=== PATIENT | female | born 1945 | race Caucasian/White ===

== ENCOUNTER 2017-05-23 10:54 | Inpatient (IN) | payer MEDICARE ==
[~2017-05-23] VITALS: Ht 167.6 cm; Wt 89.2 kg
[2017-05-23] MEDS ORDERED: AMIODARONE 900 MG in DEXTROSE 5% 500 ML IV PRN (11:20)
[2017-05-23] MEDS ORDERED: AMIODARONE 50 MG/ML, 3ML IVPush ONE (11:30)
[2017-05-23] MEDS ORDERED: FILTER 0.22 MICRON FOR AMIODARONE IV PRN (11:30)
[2017-05-23] MEDS ORDERED: AMIODARONE 150 MG in DEXTROSE 5% 100 ML IV ONE (11:30)
[2017-05-23] MEDS ORDERED: SODIUM CHLORIDE FLUSH 10ML SYR IVF ONE (11:30)
[2017-05-23 11:45] LABS: HEMATOCRIT 35.1 % (34.6-47.8); HEMOGLOBIN 11.6 g/dL (11.7-16.4); WHITE BLOOD COUNT 9.6 x10^3/uL (3.4-10)
[2017-05-23 11:58] LABS: ASPARTATE AMINO TRANSFERASE 11 U/L (15-37); BLOOD UREA NITROGEN 23 mg/dL (7-18)
[2017-05-23 12:04] LABS: IS PT STATUS REG ER OR PRE ER? YES
[2017-05-23] MEDS: AMIODARONE 900 MG in DEXTROSE 5% 482 ML IV PRN (12:14)
[2017-05-23 13:06] VITALS: BP 107/70
[2017-05-23 13:11] VITALS: BP 107/70
[2017-05-23] MEDS ORDERED: BISACODYL 5 MG EC TABLET PO PRN (13:30)
[2017-05-23] MEDS ORDERED: ACETAMINOPHEN 650 MG/20.3 ML UDC PO PRN (13:30)
[2017-05-23] MEDS ORDERED: INSU100I18 SC (14:10)
[2017-05-23] MEDS ORDERED: SPIR25TA3 PO (14:10)
[2017-05-23] MEDS ORDERED: FURO40TA6 PO (14:10)
[2017-05-23] MEDS ORDERED: LIRA3PEN SC (14:10)
[2017-05-23] MEDS ORDERED: GABA400C PO (14:10)
[2017-05-23] MEDS ORDERED: POTA20TA14 PO (14:10)
[2017-05-23] MEDS ORDERED: CHOL1CRY3 PO (14:10)
[2017-05-23] MEDS ORDERED: INSU100I32 SC (14:10)
[2017-05-23] MEDS ORDERED: APIX5TAB PO (14:10)
[2017-05-23] MEDS ORDERED: BUDE10.2 MT (14:10)
[2017-05-23] MEDS ORDERED: DILT360C PO (14:10)
[2017-05-23] MEDS ORDERED: MULT1CAP19 PO (14:10)
[2017-05-23] MEDS ORDERED: MAGN400T36 PO (14:10)
[2017-05-23] MEDS ORDERED: TIOT18CA INH (14:10)
[2017-05-23] MEDS ORDERED: LISI-420 PO (14:10)
[2017-05-23] MEDS ORDERED: L.AC1CAP6 PO (14:10)
[2017-05-23] MEDS ORDERED: ATOR40TA PO (14:10)
[2017-05-23] MEDS ORDERED: EMPA10TA PO (14:10)
[2017-05-23] MEDS ORDERED: CITA20TA9 PO (14:10)
[2017-05-23] MEDS ORDERED: FILTER 0.22 MICRON IV PRN (14:30)
[2017-05-23 14:33] LABS: IS PT STATUS REG ER OR PRE ER? NO
[2017-05-23] MEDS ORDERED: INSULIN ASPART 100 UNITS/ML, PEN SQ-INSULIN SCH (17:00)
[2017-05-23] MEDS: FUROSEMIDE 20 MG TABLET PO SCH (17:19)
[2017-05-23] MEDS ORDERED: DEXTROSE 50%, 50ML SYRINGE IVPush PRN (18:30)
[2017-05-23] MEDS ORDERED: DEXTROSE 4 GM TAB.CHEW PO PRN (18:30)
[2017-05-23] MEDS ORDERED: GLUCAGON 1 MG IM PRN (18:30)
[2017-05-23] MEDS: INSULIN DEGLUDEC 100 UNIT SC SCH (18:40)
[2017-05-23 19:45] VITALS: BP 114/75
[2017-05-23 19:49] LABS: IS PT STATUS REG ER OR PRE ER? NO
[2017-05-23] MEDS ORDERED: [UNRECOGNIZED DRUG - OTHER] SQ ONE (21:00)
[2017-05-23] MEDS ORDERED: INSULIN DEGLUDEC SQ ONE (21:00)
[2017-05-23] MEDS: TEMPLATE NON-FORMULARY MED. (Budesonide/Formoterol Fumarate (Symbicort 160-4.5 Mcg Inhaler MT SCH (22:12)
[2017-05-23] MEDS: SPIRONOLACTONE 25 MG TABLET PO SCH (22:12)
[2017-05-23] MEDS: SODIUM CHLORIDE FLUSH 10ML SYR IVF SCH (22:12)
[2017-05-23] MEDS: ATORVASTATIN 40 MG TABLET PO SCH (22:13)
[2017-05-23] MEDS: INSULIN ASPART 100 UNITS/ML, PEN SQ-INSULIN SCH (22:14)
[2017-05-23] MEDS: GABAPENTIN 400 MG CAPSULE PO SCH (23:02)
[2017-05-24 02:11] LABS: IS PT STATUS REG ER OR PRE ER? NO
[2017-05-24 02:16] VITALS: BP 126/79
[2017-05-24] MEDS: FUROSEMIDE 20 MG TABLET PO SCH ×2 (06:25→16:46)
[2017-05-24 08:10] VITALS: BP 138/83
[2017-05-24] MEDS: POTASSIUM CHLORIDE 20 MEQ TAB.ER.PRT PO SCH (08:35)
[2017-05-24] MEDS: MAGNESIUM OXIDE 400 MG TABLET PO SCH (08:35)
[2017-05-24] MEDS: INSULIN ASPART 100 UNITS/ML, PEN SQ-INSULIN SCH ×4 (08:35→16:46)
[2017-05-24] MEDS: DILTIAZEM CD 180 MG CAP.ER.24H PO SCH (08:36)
[2017-05-24] MEDS: CHOLECALCIFEROL 1,000 UNIT TABLET PO SCH (08:36)
[2017-05-24] MEDS: APIXABAN 5 MG TABLET PO SCH ×2 (08:36→20:16)
[2017-05-24] MEDS: CITALOPRAM 20 MG TABLET PO SCH (08:36)
[2017-05-24] MEDS: LISINOPRIL 20 MG TABLET PO SCH (08:36)
[2017-05-24] MEDS: SODIUM CHLORIDE FLUSH 10ML SYR IVF SCH ×2 (08:36→20:24)
[2017-05-24] MEDS: SPIRONOLACTONE 25 MG TABLET PO SCH ×2 (08:36→20:16)
[2017-05-24] MEDS: TEMPLATE NON-FORMULARY MED. (Budesonide/Formoterol Fumarate (Symbicort 160-4.5 Mcg Inhaler MT SCH ×2 (08:37→20:25)
[2017-05-24] MEDS: TIOTROPIUM BROMIDE 2.5 MCG INH SCH (08:37)
[2017-05-24] MEDS: FLORASTOR 250 MG CAPSULE PO SCH (08:44)
[2017-05-24] MEDS ORDERED: GABAPENTIN 400 MG CAPSULE PO SCH (09:00)
[2017-05-24] MEDS ORDERED: APIXABAN 5 MG TABLET PO SCH (09:00)
[2017-05-24] MEDS ORDERED: FLORASTOR 250 MG CAPSULE PO SCH (09:00)
[2017-05-24] MEDS ORDERED: CHOLECALCIFEROL 1,000 UNIT TABLET PO SCH (09:00)
[2017-05-24] MEDS ORDERED: LIDOCAINE 2% VISCOUS, 100ML MM PRN (12:00)
[2017-05-24] MEDS ORDERED: BENZOCAINE AEROSOL SPRAY 20%, 60ML TP PRN (12:00)
[2017-05-24] MEDS ORDERED: MIDAZOLAM 1 MG/ML, 5ML IVPush ONE (12:00)
[2017-05-24] MEDS ORDERED: FENTANYL PF 100 MCG/2ML IVPush ONE (12:00)
[2017-05-24] MEDS ORDERED: AMIODARONE 900 MG in DEXTROSE 5% 482 ML IV SCH (12:30)
[2017-05-24] MEDS: AMIODARONE 900 MG in DEXTROSE 5% 482 ML IV PRN (12:48)
[2017-05-24 13:37] VITALS: BP 104/57
[2017-05-24 18:28] VITALS: BP 125/64
[2017-05-24] MEDS: ATORVASTATIN 40 MG TABLET PO SCH (20:16)
[2017-05-24] MEDS: GABAPENTIN 400 MG CAPSULE PO SCH (20:16)
[2017-05-24] MEDS: INSULIN DEGLUDEC 100 UNIT SC SCH (20:36)
[2017-05-24] MEDS ORDERED: LIRAGLUTIDE 0.6 MG SC SCH (21:00)
[2017-05-25] MEDS ORDERED: LIRA0.6P2 SQ-INSULIN (00:55)
[2017-05-25] MEDS: VICTOZA 1.2 MG SQ-INSULIN SCH (01:06)
[2017-05-25 02:00] VITALS: BP 100/64
[2017-05-25] MEDS ORDERED: LABETALOL 5MG/ML, 20ML ONE (08:06)
[2017-05-25] MEDS: LISINOPRIL 20 MG TABLET PO SCH (09:00)
[2017-05-25] MEDS: FUROSEMIDE 20 MG TABLET PO SCH ×2 (09:00→16:44)
[2017-05-25] MEDS ORDERED: LISINOPRIL 10 MG TABLET ONE (09:10)
[2017-05-25] MEDS: FLORASTOR 250 MG CAPSULE PO SCH (09:12)
[2017-05-25] MEDS: SPIRONOLACTONE 25 MG TABLET PO SCH ×2 (09:12→21:30)
[2017-05-25] MEDS: APIXABAN 5 MG TABLET PO SCH ×2 (09:12→21:30)
[2017-05-25] MEDS: INSULIN ASPART 100 UNITS/ML, PEN SQ-INSULIN SCH ×3 (09:13→16:44)
[2017-05-25] MEDS: TEMPLATE NON-FORMULARY MED. (Budesonide/Formoterol Fumarate (Symbicort 160-4.5 Mcg Inhaler MT SCH ×2 (09:14→21:00)
[2017-05-25] MEDS: CITALOPRAM 20 MG TABLET PO SCH (09:14)
[2017-05-25] MEDS: SODIUM CHLORIDE FLUSH 10ML SYR IVF SCH ×2 (09:14→21:31)
[2017-05-25] MEDS: DILTIAZEM CD 180 MG CAP.ER.24H PO SCH (09:14)
[2017-05-25] MEDS: CHOLECALCIFEROL 1,000 UNIT TABLET PO SCH (09:14)
[2017-05-25] MEDS: POTASSIUM CHLORIDE 20 MEQ TAB.ER.PRT PO SCH (09:14)
[2017-05-25] MEDS: MAGNESIUM OXIDE 400 MG TABLET PO SCH (09:14)
[2017-05-25] MEDS: TIOTROPIUM BROMIDE 2.5 MCG INH SCH (09:14)
[2017-05-25 09:23] VITALS: BP 106/58
[2017-05-25] MEDS ORDERED: LISINOPRIL 10 MG TABLET PO ONE (09:30)
[2017-05-25 14:41] VITALS: BP_SYST 103; BP_SYST 95; BP_DIAS 55
[2017-05-25] MEDS: AMIODARONE 200 MG TABLET PO SCH (15:42)
[2017-05-25 18:53] VITALS: BP 113/71
[2017-05-25] MEDS ORDERED: DEXTROSE 50%, 50ML SYRINGE IVPush PRN (20:00)
[2017-05-25] MEDS ORDERED: BISACODYL 5 MG EC TABLET PO PRN (20:00)
[2017-05-25] MEDS ORDERED: GLUCAGON 1 MG IM PRN (20:00)
[2017-05-25] MEDS ORDERED: ACETAMINOPHEN 650 MG/20.3 ML UDC PO PRN (20:00)
[2017-05-25] MEDS: INSULIN DEGLUDEC 100 UNIT SC SCH (21:00)
[2017-05-25] MEDS: ATORVASTATIN 40 MG TABLET PO SCH (21:30)
[2017-05-25] MEDS: GABAPENTIN 400 MG CAPSULE PO SCH (21:30)
[2017-05-26 00:53] VITALS: BP 119/60
[2017-05-26 05:36] LABS: ASPARTATE AMINO TRANSFERASE 11 U/L (15-37); BLOOD UREA NITROGEN 35 mg/dL (7-18)
[2017-05-26 05:40] LABS: HEMATOCRIT 33.3 % (34.6-47.8); HEMOGLOBIN 11.1 g/dL (11.7-16.4)
[2017-05-26 08:00] VITALS: BP 114/67
[2017-05-26] MEDS ORDERED: REGADENOSON 0.4 MG/5 ML SYRINGE ONE (08:04)
[2017-05-26] MEDS: POTASSIUM CHLORIDE 20 MEQ TAB.ER.PRT PO SCH (08:08)
[2017-05-26] MEDS: FLORASTOR 250 MG CAPSULE PO SCH (08:08)
[2017-05-26] MEDS: DILTIAZEM CD 180 MG CAP.ER.24H PO SCH (08:08)
[2017-05-26] MEDS: FUROSEMIDE 20 MG TABLET PO SCH ×2 (08:08→16:55)
[2017-05-26] MEDS: CITALOPRAM 20 MG TABLET PO SCH (08:09)
[2017-05-26] MEDS: APIXABAN 5 MG TABLET PO SCH ×2 (08:09→20:48)
[2017-05-26] MEDS: AMIODARONE 200 MG TABLET PO SCH ×2 (08:09→20:48)
[2017-05-26] MEDS: LISINOPRIL 20 MG TABLET PO SCH (08:09)
[2017-05-26] MEDS: MAGNESIUM OXIDE 400 MG TABLET PO SCH (08:09)
[2017-05-26] MEDS: CHOLECALCIFEROL 1,000 UNIT TABLET PO SCH (08:09)
[2017-05-26] MEDS: SPIRONOLACTONE 25 MG TABLET PO SCH ×2 (08:10→20:48)
[2017-05-26] MEDS: TEMPLATE NON-FORMULARY MED. (Budesonide/Formoterol Fumarate (Symbicort 160-4.5 Mcg Inhaler MT SCH ×2 (08:11→20:47)
[2017-05-26] MEDS: SODIUM CHLORIDE FLUSH 10ML SYR IVF SCH ×2 (08:11→20:47)
[2017-05-26] MEDS: INSULIN ASPART 100 UNITS/ML, PEN SQ-INSULIN SCH ×3 (08:11→16:56)
[2017-05-26] MEDS: TIOTROPIUM BROMIDE 2.5 MCG INH SCH (08:11)
[2017-05-26 14:21] VITALS: BP 125/70
[2017-05-26] MEDS: GABAPENTIN 400 MG CAPSULE PO SCH (20:48)
[2017-05-26] MEDS: ATORVASTATIN 40 MG TABLET PO SCH (20:48)
[2017-05-26] MEDS: VICTOZA 1.2 MG SQ-INSULIN SCH (20:49)
[2017-05-26] MEDS: INSULIN DEGLUDEC 100 UNIT SC SCH (20:49)
[2017-05-26 20:50] VITALS: BP 123/64
[2017-05-26] MEDS ORDERED: BISACODYL 5 MG EC TABLET PO PRN (21:00)
[2017-05-26] MEDS ORDERED: DEXTROSE 4 GM TAB.CHEW PO PRN (21:00)
[2017-05-26] MEDS ORDERED: ACETAMINOPHEN 650 MG/20.3 ML UDC PO PRN (21:00)
[2017-05-26] MEDS ORDERED: DEXTROSE 50%, 50ML SYRINGE IVPush PRN (21:00)
[2017-05-26] MEDS ORDERED: GLUCAGON 1 MG IM PRN (21:00)
[2017-05-27 03:59] VITALS: BP 126/65
[2017-05-27] MEDS ORDERED: METOPROLOL SUCCINATE 50 MG TAB.ER.24H PO SCH (06:00)
[2017-05-27 06:37] VITALS: BP 126/67
[2017-05-27] MEDS: FUROSEMIDE 20 MG TABLET PO SCH (07:41)
[2017-05-27] MEDS: TIOTROPIUM BROMIDE 2.5 MCG INH SCH (08:14)
[2017-05-27] MEDS: TEMPLATE NON-FORMULARY MED. (Budesonide/Formoterol Fumarate (Symbicort 160-4.5 Mcg Inhaler MT SCH (08:15)
[2017-05-27] MEDS: SODIUM CHLORIDE FLUSH 10ML SYR IVF SCH (08:18)
[2017-05-27] MEDS: INSULIN ASPART 100 UNITS/ML, PEN SQ-INSULIN SCH ×2 (08:18→12:04)
[2017-05-27] MEDS: MAGNESIUM OXIDE 400 MG TABLET PO SCH (08:20)
[2017-05-27] MEDS: CITALOPRAM 20 MG TABLET PO SCH (08:20)
[2017-05-27] MEDS: FLORASTOR 250 MG CAPSULE PO SCH (08:20)
[2017-05-27] MEDS: APIXABAN 5 MG TABLET PO SCH (08:21)
[2017-05-27] MEDS: SPIRONOLACTONE 25 MG TABLET PO SCH (08:21)
[2017-05-27] MEDS: CHOLECALCIFEROL 1,000 UNIT TABLET PO SCH (08:21)
[2017-05-27] MEDS: LISINOPRIL 20 MG TABLET PO SCH (08:21)
[2017-05-27] MEDS: AMIODARONE 200 MG TABLET PO SCH (08:22)
[2017-05-27] MEDS: POTASSIUM CHLORIDE 20 MEQ TAB.ER.PRT PO SCH (08:22)
[2017-05-27] MEDS ORDERED: AMIODARONE 200 MG TABLET PO SCH (09:00)
[2017-05-27] MEDS ORDERED: METO-93 PO (13:39)
[2017-05-27] MEDS ORDERED: AMIO200T42 PO (13:39)
[2017-05-27 14:00] VITALS: BP 117/69
== END 2017-05-27 15:50 | disposition home or self-care (01) | DRG 308 ==
LOC: ED 11:31 → EDIP 12:15 → INTOOBSV 12:15 → 5SO 12:52 → OBSVTOIN 05-25 00:39
PROVIDERS: ADMIT Family Medicine; ATTEND Family Medicine
PROC: B24BZZ4 Ultrasonography of Heart with Aorta, Transesophageal (ICD-10-PCS; principal; 2017-05-25)
PROC: 5A2204Z Restoration of Cardiac Rhythm, Single (ICD-10-PCS; 2017-05-25)
DX: I48.91 Unspecified atrial fibrillation (principal); N17.0 Acute kidney failure with tubular necrosis; I47.2 Ventricular tachycardia; D68.69 Other thrombophilia; I42.9 Cardiomyopathy, unspecified; I11.0 Hypertensive heart disease with heart failure; I50.9 Heart failure, unspecified; F19.20 Other psychoactive substance dependence, uncomplicated; I48.92 Unspecified atrial flutter; E66.9 Obesity, unspecified; R79.89 Other specified abnormal findings of blood chemistry; E78.5 Hyperlipidemia, unspecified; J44.9 Chronic obstructive pulmonary disease, unspecified; E11.9 Type 2 diabetes mellitus without complications; Z87.891 Personal history of nicotine dependence; Z86.73 Personal history of transient ischemic attack (TIA), and cerebral infarction without residual deficits; Z79.4 Long term (current) use of insulin; Z79.899 Other long term (current) drug therapy; Z68.31 Body mass index [BMI] 31.0-31.9, adult; Z79.01 Long term (current) use of anticoagulants
CPT/HCPCS: 36415; 71010; 78452; 80053; 80061; 82962; 83735; 83880; 84439; 84443; 84484; 85025; 85610; 93005; 93017; 93306; 93312; 93321; 93325; 96365; J1815; J2785; A9502; C9898; J0282; J7060

== ENCOUNTER 2017-06-15 09:44 | Emergency (ER) | payer MEDICARE ==
[~2017-06-15] VITALS: Ht 167.6 cm; Wt 99.1 kg
[~2017-06-15 09:44] MED LIST: AMIO200T42 PO; APIX5TAB PO; ATOR40TA PO; BUDE10.2 MT; CHOL1CRY3 PO; CITA20TA9 PO; DILT360C PO; EMPA10TA PO; FURO40TA6 PO; GABA400C PO; INSU100I18 SC; INSU100I32 SC; L.AC1CAP6 PO; LIRA0.6P2 SQ-INSULIN; LIRA3PEN SC; LISI-420 PO; MAGN400T36 PO; METO-93 PO; MULT1CAP19 PO; POTA20TA14 PO; SPIR25TA3 PO; TIOT18CA INH
[2017-06-15] MEDS ORDERED: DIGO125T PO (10:39)
[2017-06-15 12:03] LABS: HEMATOCRIT 36.5 % (34.6-47.8); WHITE BLOOD COUNT 7.8 x10^3/uL (3.4-10)
[2017-06-15 12:13] LABS: BLOOD UREA NITROGEN 33 mg/dL (7-18)
[2017-06-15 12:19] LABS: ASPARTATE AMINO TRANSFERASE 18 U/L (15-37)
[2017-06-15 12:21] LABS: IS PT STATUS REG ER OR PRE ER? YES
[2017-06-15 13:24] VITALS: BP 111/75
== END 2017-06-15 13:27 | disposition home or self-care (01) ==
LOC: ED 12:12
DX: R07.89 Other chest pain (principal); R00.2 Palpitations; R42 Dizziness and giddiness; I12.9 Hypertensive chronic kidney disease with stage 1 through stage 4 chronic kidney disease, or unspecified chronic kidney disease; E11.22 Type 2 diabetes mellitus with diabetic chronic kidney disease; N18.9 Chronic kidney disease, unspecified; Z87.891 Personal history of nicotine dependence
CPT/HCPCS: 36415; 71020; 80053; 83880; 84484; 85025; 85610; 85730; 93005; 99285

== ENCOUNTER 2017-07-06 09:50 | Observation (INO) | payer MEDICARE ==
[2017-07-05 10:09] VITALS: BP 146/77
[2017-07-05 10:13] LABS: ALANINE AMINOTRANSFERASE 46 U/L (12-78); ALBUMIN 4.2 g/dL (3.4-5.0); ANION GAP 8 mmol/L (5-15); CALCIUM 9.4 mg/dL (8.5-10.1); CHLORIDE 93 mmol/L (98-107); CHOLESTEROL, TOTAL 151 mg/dL (140-239); CREATININE 2.51 mg/dL (0.55-1.02)
[2017-07-05 10:21] LABS: BASOPHILS # (AUTO) 0.01 x10^3/uL (0-0.1); BASOPHILS % (AUTO) 0 % (0-1); EOSINOPHILS # (AUTO) 0.19 x10^3/uL (0-0.4); EOSINOPHILS % (AUTO) 3 % (1-7); LYMPHOCYTES # (AUTO) 1.03 x10^3/uL (1-3.4); LYMPHOCYTES % (AUTO) 14 % (22-44); MD NO; MEAN CORPUSCULAR HEMOGLOBIN 29.9 pg (27.0-34.8); MEAN CORPUSCULAR HGB CONC 33.4 g/dL (32.4-35.8); MEAN CORPUSCULAR VOLUME 89.5 fL (80-100); MEAN PLATELET VOLUME 10.5 fL (7.4-10.4); MONOCYTES # (AUTO) 0.69 x10^3/uL (0.2-0.8); MONOCYTES % (AUTO) 10 % (2-9); NEUTROPHILS # (AUTO) 5.25 x10^3/uL (1.8-6.8); NEUTROPHILS % (AUTO) 73 % (42-75); PLATELET COUNT 168 x10^3/uL (130-400); RED BLOOD COUNT 3.97 x10^6/uL (3.82-5.3); RED CELL DISTRIBUTION WIDTH 14.9 % (9.6-15.2)
[2017-07-05 10:22] LABS: ALKALINE PHOSPHATASE 55 U/L (45-117); CHOL/HDL RATIO 4.3; HDL CHOL % 23 % (28-40); HDL CHOLESTEROL (DIRECT) 35 mg/dL (40-60); T4 (THYROXINE) 11.2 mcg/dL (4.8-13.9); TOTAL PROTEIN 7.8 g/dL (6.4-8.2); TRIGLYCERIDES 666 mg/dL (50-200)
[~2017-07-06] VITALS: Ht 167.6 cm; Wt 101.5 kg
[~2017-07-06 09:50] MED LIST changes: +CHOL40002 PO; +DIGO125T PO; +FURO20TA3 PO; +HUM100VI6 SQ-INSULIN; +INSU200I4 SQ-INSULIN; +MAGNESIUM PO; +SPIR25TA PO
[2017-07-06] MEDS ORDERED: SODIUM CHLORIDE 0.9% 1,000 ML IV SCH (10:05)
[2017-07-06 10:56] LABS: ALANINE AMINOTRANSFERASE 55 U/L (12-78); ALBUMIN 4.3 g/dL (3.4-5.0); ANION GAP 11 mmol/L (5-15); CALCIUM 9.5 mg/dL (8.5-10.1); CHLORIDE 94 mmol/L (98-107); CREATININE 2.29 mg/dL (0.55-1.02)
[2017-07-06 10:58] LABS: ALKALINE PHOSPHATASE 58 U/L (45-117); BILIRUBIN,TOTAL 0.9 mg/dL (0.2-1.0); TOTAL PROTEIN 7.9 g/dL (6.4-8.2)
[2017-07-06] MEDS ORDERED: FENTANYL PF 100 MCG/2ML ONE (12:14)
[2017-07-06] MEDS ORDERED: MIDAZOLAM 1 MG/ML, 5ML ONE (12:14)
[2017-07-06] MEDS ORDERED: LIDOCAINE 2%, 20ML ONE (12:15)
[2017-07-06] MEDS ORDERED: CEFAZOLIN PMX 1GM/50ML 50 ML ONE (12:15)
[2017-07-06] MEDS ORDERED: CEFAZOLIN 1,000 MG ONE (12:15)
[2017-07-06 13:40] VITALS: BP 134/74
[2017-07-06] MEDS ORDERED: INSULIN ASPART 100 UNITS/ML, PEN SQ-INSULIN SCH ×2 (14:00→18:00)
[2017-07-06] MEDS: INSULIN ASPART 100 UNITS/ML, PEN SQ-INSULIN SCH (14:07)
[2017-07-06] MEDS ORDERED: IPRATROPIUM 0.5 MG/2.5 ML INHA HHN SCH ×2 (16:00→17:00)
[2017-07-06] MEDS: GABAPENTIN 400 MG CAPSULE PO SCH ×2 (17:32→20:07)
[2017-07-06 20:04] VITALS: BP 146/75
[2017-07-06] MEDS: SPIRONOLACTONE 25 MG TABLET PO SCH (20:06)
[2017-07-06] MEDS: AMIODARONE 200 MG TABLET PO SCH (20:06)
[2017-07-06] MEDS ORDERED: ATORVASTATIN 40 MG TABLET PO SCH (21:00)
[2017-07-07 02:14] VITALS: BP 127/67
[2017-07-07] MEDS ORDERED: IPRATROPIUM 0.5 MG/2.5 ML INHA ONE (06:47)
[2017-07-07 08:00] VITALS: BP 145/73
[2017-07-07] MEDS ORDERED: FUROSEMIDE 20 MG TABLET PO SCH (09:00)
[2017-07-07] MEDS ORDERED: LISINOPRIL 10 MG TABLET PO SCH (09:00)
[2017-07-07] MEDS ORDERED: CITALOPRAM 20 MG TABLET PO SCH (09:00)
[2017-07-07] MEDS ORDERED: MAGNESIUM OXIDE 400 MG TABLET PO SCH (09:00)
[2017-07-07] MEDS ORDERED: TIOTROPIUM BROMIDE 2.5 MCG INH SCH (09:00)
[2017-07-07] MEDS ORDERED: MULTIVITAMIN 1 TABLET PO SCH (09:00)
[2017-07-07] MEDS ORDERED: DILTIAZEM 120 MG CAP.ER.24H PO SCH (09:00)
[2017-07-07] MEDS: GABAPENTIN 400 MG CAPSULE PO SCH (09:00)
[2017-07-07] MEDS ORDERED: IPRATROPIUM 0.5 MG/2.5 ML INHA HHN SCH (09:00)
[2017-07-07] MEDS ORDERED: CHOLECALCIFEROL 1,000 UNIT TABLET PO SCH (09:00)
[2017-07-07] MEDS ORDERED: LACTOBACILLUS CHEW TABLET PO SCH (09:00)
[2017-07-07] MEDS: INSULIN ASPART 100 UNITS/ML, PEN SQ-INSULIN SCH (09:13)
[2017-07-07] MEDS: SPIRONOLACTONE 25 MG TABLET PO SCH (09:14)
[2017-07-07] MEDS: AMIODARONE 200 MG TABLET PO SCH (09:22)
== END 2017-07-07 13:08 | disposition home or self-care (01) ==
LOC: CACL 09:50 → CCU 13:14 → 5SO 13:25
PROVIDERS: ADMIT Internal Medicine Cardiovascular Disease; ATTEND Internal Medicine Cardiovascular Disease
DX: I49.5 Sick sinus syndrome (principal); I48.91 Unspecified atrial fibrillation; J44.9 Chronic obstructive pulmonary disease, unspecified; E78.5 Hyperlipidemia, unspecified; E11.9 Type 2 diabetes mellitus without complications
CPT/HCPCS: 33208; 36415; 71045; 71046; 80053; 80061; 82962; 84436; 84481; 85025; 94640; 96372; 99156; C1779; C1785; C1892; G0378; J0690; J1815; J2250; J3010; J3490; J7644

== ENCOUNTER → 2017-08-10 | Outpatient (CLI) | payer MEDICARE ==
[2017-08-10 10:58] LABS: BASOPHILS # (AUTO) 0.02 x10^3/uL (0-0.1); BASOPHILS % (AUTO) 0 % (0-1); EOSINOPHILS # (AUTO) 0.17 x10^3/uL (0-0.4); EOSINOPHILS % (AUTO) 2 % (1-7); LYMPHOCYTES % (AUTO) 16 % (22-44); MD NO; MEAN CORPUSCULAR HEMOGLOBIN 30.6 pg (27.0-34.8); MEAN CORPUSCULAR HGB CONC 32.7 g/dL (32.4-35.8); MEAN CORPUSCULAR VOLUME 93.4 fL (80-100); MONOCYTES # (AUTO) 0.75 x10^3/uL (0.2-0.8); MONOCYTES % (AUTO) 11 % (2-9); NEUTROPHILS # (AUTO) 5.08 x10^3/uL (1.8-6.8); NEUTROPHILS % (AUTO) 71 % (42-75); PLATELET COUNT 192 x10^3/uL (130-400); RED BLOOD COUNT 3.67 x10^6/uL (3.82-5.3); RED CELL DISTRIBUTION WIDTH 17.8 % (9.6-15.2)
[2017-08-10 10:59] LABS: INTERNATIONAL NORMALIZED RATIO 0.97 (0.93-1.1)
[2017-08-10 11:01] LABS: ANION GAP 9 mmol/L (5-15); CALCIUM 8.5 mg/dL (8.5-10.1); CHLORIDE 99 mmol/L (98-107); CREATININE 2.15 mg/dL (0.55-1.02)
== END | disposition home or self-care (01) ==
LOC: STAR 10:05
PROVIDERS: ATTEND Internal Medicine Cardiovascular Disease
DX: Z01.818 Encounter for other preprocedural examination (principal)
CPT/HCPCS: 36415; 71046; 80048; 85025; 85610

== ENCOUNTER 2017-08-14 06:28 | Observation (INO) | payer MEDICARE ==
[2017-08-10 10:42] VITALS: BP 123/58
[~2017-08-14] VITALS: Ht 167.6 cm; Wt 96.8 kg
[2017-08-14] MEDS ORDERED: SODIUM CHLORIDE 0.9% 1,000 ML IV SCH ×2 (07:07→12:00)
[2017-08-14] MEDS ORDERED: AMIO200T42 PO (07:21)
[2017-08-14] MEDS ORDERED: FENTANYL PF 250 MCG/5ML ONE (07:41)
[2017-08-14] MEDS ORDERED: LIDOCAINE 2%, 20ML ONE (07:58)
[2017-08-14] MEDS ORDERED: ONDANSETRON 2MG/ML, 2ML ONE (08:00)
[2017-08-14] MEDS ORDERED: ALBUTEROL SULFATE 200 PUFFS/8.5 GR INH ONE (08:00)
[2017-08-14] MEDS ORDERED: SUCCINYLCHOLINE 20 MG/ML, 10ML ONE (08:00)
[2017-08-14] MEDS ORDERED: PHENYLEPHRINE 10 MG/ML ONE (08:00)
[2017-08-14] MEDS ORDERED: DEXAMETHASONE 4 MG/ML, 1ML ONE (08:00)
[2017-08-14] MEDS ORDERED: ROCURONIUM 10 MG/ML,10ML ONE (08:00)
[2017-08-14] MEDS ORDERED: PROPOFOL 10 MG/ML, 20ML ONE (08:00)
[2017-08-14] MEDS ORDERED: FUROSEMIDE 20 MG TABLET PO SCH (09:00)
[2017-08-14] MEDS ORDERED: TEMPLATE NON-FORMULARY MED. (Empagliflozin (Jardiance) 1 TAB) PO SCH (09:00)
[2017-08-14] MEDS ORDERED: AMIODARONE 200 MG TABLET PO SCH (09:00)
[2017-08-14] MEDS ORDERED: LIRAGLUTIDE 1.2 MG SQ-INSULIN PRN (09:00)
[2017-08-14] MEDS ORDERED: ACETAMINOPHEN 325 MG TABLET PO PRN ×2 (09:00→09:30)
[2017-08-14] MEDS: TEMPLATE NON-FORMULARY MED. (Budesonide/Formoterol Fumarate (Symbicort 160-4.5 Mcg Inhaler MT SCH ×2 (09:00→19:53)
[2017-08-14] MEDS: GABAPENTIN 400 MG CAPSULE PO SCH ×3 (09:00→19:48)
[2017-08-14] MEDS ORDERED: SPIRONOLACTONE 25 MG TABLET PO SCH (09:00)
[2017-08-14] MEDS: APIXABAN 5 MG TABLET PO SCH ×2 (09:00→19:48)
[2017-08-14] MEDS: TIOTROPIUM BROMIDE 2.5 MCG INH SCH (09:00)
[2017-08-14] MEDS ORDERED: ZOLPIDEM 5MG TABLET PO PRN (09:00)
[2017-08-14] MEDS ORDERED: FENTANYL PF 100 MCG/2ML IV PRN (09:30)
[2017-08-14] MEDS ORDERED: ONDANSETRON 2MG/ML, 2ML IVPush PRN (09:30)
[2017-08-14] MEDS ORDERED: hydrALAzine 20 MG/ML, 1ML IV PRN (09:30)
[2017-08-14] MEDS ORDERED: HYDROmorphone 1 MG/ML, 1ML IV PRN (09:30)
[2017-08-14] MEDS ORDERED: LABETALOL 5MG/ML, 20ML IV PRN (09:30)
[2017-08-14] MEDS ORDERED: ALBUTEROL SULFATE 2.5 MG/3 ML NPPB PRN (09:30)
[2017-08-14] MEDS ORDERED: OXYcodone 5 MG/5 ML ORAL.SOL UDC PO PRN (09:30)
[2017-08-14] MEDS ORDERED: MIDAZOLAM 1 MG/ML, 2ML IV PRN (09:30)
[2017-08-14] MEDS ORDERED: MEPERIDINE/PF 25MG/0.5ML IVPush PRN (09:30)
[2017-08-14] MEDS ORDERED: PROMETHAZINE 12.5 MG SUPP PR PRN (09:30)
[2017-08-14] MEDS ORDERED: APIXABAN 5 MG TABLET ONE (09:37)
[2017-08-14 10:10] VITALS: BP 117/73
[2017-08-14] MEDS: MULTIVITAMIN 1 TABLET PO SCH (12:05)
[2017-08-14] MEDS: LACTOBACILLUS CHEW TABLET PO SCH (12:05)
[2017-08-14] MEDS: CITALOPRAM 20 MG TABLET PO SCH (12:05)
[2017-08-14] MEDS: MAGNESIUM OXIDE 400 MG TABLET PO SCH (12:06)
[2017-08-14] MEDS: CHOLECALCIFEROL 1,000 UNIT TABLET PO SCH (12:06)
[2017-08-14 12:29] VITALS: BP 117/73
[2017-08-14] MEDS ORDERED: INSU100C5 SQ-INSULIN (15:15)
[2017-08-14] MEDS ORDERED: INSULIN ASPART 70/30 100U/ML, PEN SQ-INSULIN SCH (16:30)
[2017-08-14 19:01] VITALS: BP 106/68
[2017-08-14] MEDS ORDERED: TEMPLATE NON-FORMULARY MED. (Liraglutide (Victoza 3-Pak) 1.8 MG) SQ-INSULIN SCH (21:00)
[2017-08-14] MEDS ORDERED: ATORVASTATIN 40 MG TABLET PO SCH (21:00)
[2017-08-14] MEDS ORDERED: TRESIBA 100 UNIT SQ-INSULIN SCH (21:00)
[2017-08-15 02:00] VITALS: BP 130/72
[2017-08-15 06:54] LABS: BASOPHILS # (AUTO) 0.03 x10^3/uL (0-0.1); BASOPHILS % (AUTO) 0 % (0-1); EOSINOPHILS # (AUTO) 0.01 x10^3/uL (0-0.4); EOSINOPHILS % (AUTO) 0 % (1-7); LYMPHOCYTES # (AUTO) 1.08 x10^3/uL (1-3.4); LYMPHOCYTES % (AUTO) 14 % (22-44); MD NO; MEAN CORPUSCULAR HEMOGLOBIN 30.8 pg (27.0-34.8); MEAN CORPUSCULAR HGB CONC 33.3 g/dL (32.4-35.8); MEAN CORPUSCULAR VOLUME 92.6 fL (80-100); MEAN PLATELET VOLUME 9.6 fL (7.4-10.4); MONOCYTES # (AUTO) 0.63 x10^3/uL (0.2-0.8); MONOCYTES % (AUTO) 8 % (2-9); NEUTROPHILS % (AUTO) 78 % (42-75); PLATELET COUNT 193 x10^3/uL (130-400); RED BLOOD COUNT 3.63 x10^6/uL (3.82-5.3); RED CELL DISTRIBUTION WIDTH 16.6 % (9.6-15.2)
[2017-08-15 07:08] LABS: % IRON SATURATION 39 % (20-55); ANION GAP 8 mmol/L (5-15); CALCIUM 8.6 mg/dL (8.5-10.1); CHLORIDE 100 mmol/L (98-107); CREATININE 2.07 mg/dL (0.55-1.02); IRON LEVEL 104 mcg/dL (50-170); TOTAL IRON BINDING CAPACITY 270 mcg/dL (250-450)
[2017-08-15 08:24] VITALS: BP 114/66
[2017-08-15] MEDS: NOVOLOG SQ-INSULIN SCH ×2 (08:46→11:00)
[2017-08-15] MEDS: MULTIVITAMIN 1 TABLET PO SCH (08:46)
[2017-08-15] MEDS: LACTOBACILLUS CHEW TABLET PO SCH (08:46)
[2017-08-15] MEDS: MAGNESIUM OXIDE 400 MG TABLET PO SCH (08:46)
[2017-08-15] MEDS: CITALOPRAM 20 MG TABLET PO SCH (08:46)
[2017-08-15] MEDS: GABAPENTIN 400 MG CAPSULE PO SCH (08:46)
[2017-08-15] MEDS: APIXABAN 5 MG TABLET PO SCH (08:46)
[2017-08-15] MEDS: CHOLECALCIFEROL 1,000 UNIT TABLET PO SCH (08:46)
[2017-08-15] MEDS: TEMPLATE NON-FORMULARY MED. (Budesonide/Formoterol Fumarate (Symbicort 160-4.5 Mcg Inhaler MT SCH (08:47)
[2017-08-15] MEDS: TIOTROPIUM BROMIDE 2.5 MCG INH SCH (08:47)
[2017-08-15] MEDS ORDERED: ACET325T14 PO (09:54)
[2017-08-15] MEDS ORDERED: SPIRONOLACTONE 25 MG TABLET PO SCH (10:00)
[2017-08-15] MEDS ORDERED: FUROSEMIDE 20 MG TABLET PO SCH (10:00)
== END 2017-08-15 13:06 | disposition home or self-care (01) ==
LOC: CACL 06:28 → ORIP 08:55 → 5SO 10:06 → DCLOUNGE 08-15 12:52
PROVIDERS: ADMIT Internal Medicine Cardiovascular Disease; ATTEND Internal Medicine Cardiovascular Disease
DX: I48.91 Unspecified atrial fibrillation (principal); I44.2 Atrioventricular block, complete; Z95.0 Presence of cardiac pacemaker
CPT/HCPCS: 36415; 80048; 82947; 82962; 83540; 83550; 85025; 93650; 96360; 96361; 96372; C1766; C1894; C2630; G0378; J0330; J1100; J2370; J2405; J2704; J3010; J3490; J7030

== ENCOUNTER 2017-11-08 13:03 | Emergency (ER) | payer MEDICARE ==
[~2017-11-08] VITALS: Ht 167.6 cm; Wt 105.7 kg
[~2017-11-08 13:03] MED LIST changes: +ACET325T14 PO; +INSU100C5 SQ-INSULIN
[2017-11-08 14:44] LABS: ALANINE AMINOTRANSFERASE 32 U/L (12-78); ALBUMIN 3.7 g/dL (3.4-5.0); ANION GAP 8 mmol/L (5-15); CALCIUM 8.6 mg/dL (8.5-10.1); CHLORIDE 103 mmol/L (98-107)
[2017-11-08 14:45] LABS: BASOPHILS # (AUTO) 0.01 x10^3/uL (0-0.1); BASOPHILS % (AUTO) 0 % (0-1); EOSINOPHILS # (AUTO) 0.13 x10^3/uL (0-0.4); EOSINOPHILS % (AUTO) 2 % (1-7); LYMPHOCYTES # (AUTO) 1.15 x10^3/uL (1-3.4); LYMPHOCYTES % (AUTO) 15 % (22-44); MD NO; MEAN CORPUSCULAR HEMOGLOBIN 31.3 pg (27.0-34.8); MEAN CORPUSCULAR HGB CONC 32.8 g/dL (32.4-35.8); MEAN CORPUSCULAR VOLUME 95.6 fL (80-100); MEAN PLATELET VOLUME 10.3 fL (7.4-10.4); MONOCYTES # (AUTO) 0.69 x10^3/uL (0.2-0.8); MONOCYTES % (AUTO) 9 % (2-9); NEUTROPHILS # (AUTO) 5.68 x10^3/uL (1.8-6.8); NEUTROPHILS % (AUTO) 74 % (42-75); PLATELET COUNT 205 x10^3/uL (130-400); RED BLOOD COUNT 3.72 x10^6/uL (3.82-5.3); RED CELL DISTRIBUTION WIDTH 14.1 % (9.6-15.2)
[2017-11-08 14:48] LABS: ALKALINE PHOSPHATASE 62 U/L (45-117); BILIRUBIN,TOTAL 0.5 mg/dL (0.2-1.0); TOTAL PROTEIN 7.4 g/dL (6.4-8.2); TROPONIN I < 0.015 ng/mL (0.000-0.045)
[2017-11-08 16:06] VITALS: BP 145/89
== END 2017-11-08 16:08 | disposition home or self-care (01) ==
LOC: ED 14:53
DX: J44.9 Chronic obstructive pulmonary disease, unspecified (principal); E11.9 Type 2 diabetes mellitus without complications; I11.9 Hypertensive heart disease without heart failure; I48.91 Unspecified atrial fibrillation
CPT/HCPCS: 36415; 71045; 80053; 83605; 83880; 84484; 85025; 93005; 99285

== ENCOUNTER → 2017-12-27 | Outpatient (CLI) | payer MEDICARE | END | disposition home or self-care (01) | LOC: CFH 15:50 | PROVIDERS: ATTEND Nurse Practitioner Family | DX: I34.0 Nonrheumatic mitral (valve) insufficiency (principal); I42.9 Cardiomyopathy, unspecified; I10 Essential (primary) hypertension; E11.9 Type 2 diabetes mellitus without complications; E78.5 Hyperlipidemia, unspecified; Z87.891 Personal history of nicotine dependence | CPT/HCPCS: 93306 ==